=== PATIENT | female | born 1975 | race Two or more races ===

== ENCOUNTER 2019-05-16 06:30 | Day surgery (SDC) | payer OTHER ==
[~2019-05-16 06:30] MED LIST: BENADRYL25 MG PO; OMEGA-31000 MG PO; SYNTHROID50 MCG PO; VITAMIN C500 MG PO; VITAMIN E1000 UNI3 PO; XANAX2 MG PO; ZOCOR20 MG PO
[2019-05-16] MEDS ORDERED: NEURONTIN300 MG PO (09:55)
[2019-05-16] MEDS ORDERED: PERCOCET 5-3251 EACH PO (09:55)
[2019-05-16] MEDS ORDERED: KETO10TA2 PO (09:56)
[2019-05-16] MEDS ORDERED: RECTICARE30 GM TOP (09:57)
== END 2019-05-16 13:35 | disposition home or self-care (01) ==
LOC: CIR.AMB 06:30 → ADM 08:30 → CIR.AMB 08:30
DX: K62.0 Anal polyp (principal); K64.4 Residual hemorrhoidal skin tags; K64.8 Other hemorrhoids